=== PATIENT | female | born 1955 | race African-American/Black ===

== ENCOUNTER → 2021-01-27 15:20 | Outpatient (CLI) | payer OTHER, SELFPAY ==
--- NOTE | ~2021-01-27 | DEXA_ITS ---
Bone Density Report Name: America Trimble Age: 65 Sex: Female Ethnicity: Black Date of : 1955 Indication: postmenopausal; screening for osteoporosis; hysterectomy; Referring Provider: TODD CALABRESE Study: Bone densitometry was performed. Exam Date: January 27, 2021 Accession number: [id number] Bone Density: Region BMD T-score Z-score Classification AP Spine (L1-L4) 0.955 -0.8 0.0 Normal Femoral Neck (Left) 0.817 -0.3 0.3 Normal Total Hip (Left) 0.953 0.1 0.4 Normal Femoral Neck (Right) 0.774 -0.7 0.0 Normal Total Hip (Right) 0.968 0.2 0.5 Normal Total Hip Mean 0.961 0.2 0.5 Normal World Health Organization criteria for BMD impression classify patients as: Normal (T-score at or above -1.0), Osteopenia (T-score between -1.0 and -2.5), or Osteoporosis (T-score at or below -2.5). 10-year Fracture Risk: FRAX not reported because: All T-scores for Spine Total, Hip Total, Femoral Neck at or above -1.0 Clinical Information Provided by Patient: Has used the following medications: Vitamin D, multi vitamin Has the following medical conditions: Hysterectomy Patient maximum height was 69 Menopause Age: 38 Does not regularly consume dairy products Drinks caffeinated beverages Onset of menses at age 15 Number of children 1 Impression: The patient has normal bone mass. Discussion: BONE DENSITY IS ABOVE THE MINIMUM DESIRABLE LEVEL AT ALL SKELETAL SITES TESTED. This patient?s bone mineral density is above the minimum desirable level (T-score -1.0 or better) at all sites measured. The patient should follow a healthful lifestyle (good nutrition with adequate calcium and vitamin D, and appropriate weight-bearing exercise). Follow-Up: Consider repeating this study in 5 years or sooner if there is some new clinical indication. Reported by: JOY on 01/27/2021 3:47:00 PM. Reviewed, dictated and finalized at location [facility]OWDER
== END ==
PROVIDERS: PCP Internal Medicine; Visit Provider Obstetrics & Gynecology
DX: Z78.0 Asymptomatic menopausal state (principal)
CPT/HCPCS: 77080

== ENCOUNTER 2022-06-25 01:02 | Day surgery (SDC) | payer OTHER, SELFPAY ==
[2022-06-09 13:51] VITALS: BMI 34.2
[2022-06-25 06:42] VITALS: BP 139/78; PULSE 80; RESP 18; TEMP 36.4; O2SAT 100
[2022-06-25] MEDS: LACTATED RINGERS 1,000 ML 150 ML IV CONT (06:54)
--- NOTE | 2022-06-25 07:31 | PM.HPGS ---
History of Present Illness History of Present Illness Consent: Risks, benefits, and alternatives have been discussed and questions answered. Patient agrees to proceed with procedure. Chief complaint: positive cologuard Narrative: America Trimble is a 66 year old female Presents for screening colonoscopy. Patient's current weight appetite and bowel movements are normal. Patient denies abdominal pain. Patient found to have a positive Cologuard test. This reason was referred for further evaluation by colonoscopy. Patient does have a prior colonoscopy 15 years ago felt to be unremarkable. She denies any blood in her stools her bowel habits are normal. Review of Systems Review of Systems: Review of systems noncontributory. [facility] Past Medical History Medical History Arthritis History of needle biopsy both breast History of uterine fibroid History of vaginal delivery Hyperlipidemia Hypertension Seasonal allergies Surgical History Surgical History History of hysterectomy History of myomectomy S/P foot surgery S/P lumpectomy, left breast Family History Family History Sibling Hypertension Heart disease Cerebrovascular accident Lupus Son Diabetes mellitus Grandparent Stomach cancer Social History Social History Smoking status: Never smoker Alcohol intake: never Substance use: never Substance use type: does not use Living arrangements: alone Spiritual care concerns: No Meds Home Medications and Allergies Home Medications Medication Instructions Recorded Confirmed Type amlodipine 10 mg tablet 10 mg PO DAILY 11/06/20 06/09/22 History atorvastatin 20 mg tablet 20 mg PO DAILY 11/06/20 06/09/22 History cholecalciferol (vitamin D3) 25 25 mcg PO DAILY 11/06/20 06/09/22 History mcg (1,000 unit) capsule fluticasone propionate 50 1 spray intranasal DAILY PRN Nasal 11/06/20 06/09/22 History mcg/actuation nasal Congestion spray,suspension (Flonase Allergy Relief) multivitamin (Multiple Vitamins 1 tablet PO DAILY 11/06/20 06/09/22 History tablet) naproxen 500 mg tablet 500 mg PO DAILY PRN Pain 11/06/20 06/09/22 History oxybutynin chloride 10 mg 10 mg PO DAILY 11/06/20 06/09/22 History tablet,extended release 24 hr vitamin E mixed 100 unit tablet 100 unit PO DAILY 11/06/20 06/09/22 History apple cider vinegar 300 mg tablet 300 mg PO DAILY 11/12/21 06/09/22 History sodium,potassium,mag sulfates 17.5 See Rx Instructions PO .COMPLEX 05/05/22 Rx gram-3.13 gram-1.6 gram oral soln #354 mL (Suprep Bowel Prep Kit) calcium-vitamin D2-iron tablet 1 tablet PO DAILY 06/09/22 06/09/22 History Allergies Allergy/AdvReac Type Severity Reaction Status Date / Time lisinopril Allergy Unknown Asthma Verified 06/25/22 06:41 ragweed pollen Allergy Unknown Asthma Verified 06/25/22 06:41 Vital Signs Vital Signs - 24 hr 06/25/22 06:42 Temperature 97.5 F L Pulse Rate 80 Respiratory Rate 18 Blood Pressure 139/78 Pulse Oximetry 100 Oxygen Delivery Room Air Exam Narrative: Physical exam reveals patient to be alert. Vital signs stable. HEENT exam is unremarkable. Patient is anicteric. Lungs are clear to auscultation and percussion. Heart is without murmur or extra sounds. Abdomen bowel sounds present soft nontender with no organomegaly. Digital external rectal exam is normal. Assessment and Plan Assessment and plan (1) Positive colorectal cancer screening using Cologuard test: Code(s): R19.5 - Other fecal abnormalities Status: Acute Assessment and Plan: Patient was found to have a positive screening Cologuard test. For this reason colonoscopy will be performed.
--- NOTE | 2022-06-25 07:47 | WPDANESEPPF ---
Anes - Initial Pre Proc Eval Procedure: Operation Date: 06/25/22 08:00 Proposed Procedures p Colonoscopy - Alden Burns MD Date/Time: 06/25/22 07:47 Surgeon: Alden Burns MD Pre Op Diagnosis: positive cologuard Patient Data Age: 66 Gender: F Height: 1.73 m Weight: 99.8 kg Last Vital Signs Temp 97.5 F L 06/25/22 06:42 Pulse 80 06/25/22 06:42 Resp 18 06/25/22 06:42 BP 139/78 06/25/22 06:42 Pulse Ox 100 06/25/22 06:42 O2 Del Method Room Air 06/25/22 06:42 Allergies Allergy/AdvReac Type Severity Reaction Status Date / Time lisinopril Allergy Unknown Asthma Verified 06/25/22 06:41 ragweed pollen Allergy Unknown Asthma Verified 06/25/22 06:41 Home Medications Medication Instructions Recorded Confirmed Type amlodipine 10 mg tablet 10 mg PO DAILY 11/06/20 06/09/22 History atorvastatin 20 mg tablet 20 mg PO DAILY 11/06/20 06/09/22 History cholecalciferol (vitamin D3) 25 25 mcg PO DAILY 11/06/20 06/09/22 History mcg (1,000 unit) capsule fluticasone propionate 50 1 spray intranasal DAILY PRN Nasal 11/06/20 06/09/22 History mcg/actuation nasal Congestion spray,suspension (Flonase Allergy Relief) multivitamin (Multiple Vitamins 1 tablet PO DAILY 11/06/20 06/09/22 History tablet) naproxen 500 mg tablet 500 mg PO DAILY PRN Pain 11/06/20 06/09/22 History oxybutynin chloride 10 mg 10 mg PO DAILY 11/06/20 06/09/22 History tablet,extended release 24 hr vitamin E mixed 100 unit tablet 100 unit PO DAILY 11/06/20 06/09/22 History apple cider vinegar 300 mg tablet 300 mg PO DAILY 11/12/21 06/09/22 History sodium,potassium,mag sulfates 17.5 See Rx Instructions PO .COMPLEX 05/05/22 Rx gram-3.13 gram-1.6 gram oral soln #354 mL (Suprep Bowel Prep Kit) calcium-vitamin D2-iron tablet 1 tablet PO DAILY 06/09/22 06/09/22 History Patient hx anesthesia problems: none Family hx anesthesia problems: none Results Review: All pre-operative results and documents have been reviewed as part of the pre-operative evaluation. [facility] Past Medical History Medical History Arthritis History of needle biopsy both breast History of uterine fibroid History of vaginal delivery Hyperlipidemia Hypertension Seasonal allergies Surgical History Surgical History History of hysterectomy History of myomectomy S/P foot surgery S/P lumpectomy, left breast Family History Family History Sibling Hypertension Heart disease Cerebrovascular accident Lupus Son Diabetes mellitus Grandparent Stomach cancer Social History Social History Smoking status: Never smoker Alcohol intake: never Substance use: never Substance use type: does not use Living arrangements: alone Spiritual care concerns: No Anes - Eval Final PreProcedure Day of Procedure 06/25/22 07:47 Patient weight: obese Heart: regular rate and rhythm Lungs: clear to auscultation Airway: Mallampati scale class II Neurological: alert and oriented Last oral intake: >/= 8 hours ASA classification: II Emergent: no Anesthetic plan: proceed Anesthesia type and monitoring: general GIVS and standard monitoring Results Review: All pre-operative results and documents have been reviewed as part of the pre-operative evaluation. Informed Consent: The patient's anesthetic plan and its attendant risks and benefits were discussed with the patient/family/POA. Questions were solicited and answers provided to the satisfaction of the patient/family/POA.
[2022-06-25 08:21] VITALS: BP 121/92; PULSE 68; RESP 18; O2SAT 97
[2022-06-25 08:31] VITALS: BP 108/72; PULSE 70; RESP 18; O2SAT 99
[2022-06-25 08:41] VITALS: BP 132/76; PULSE 66; RESP 18; O2SAT 99
== END 2022-06-25 08:52 | disposition home or self-care (01) ==
PROVIDERS: PCP Internal Medicine; Referring Provider Obstetrics & Gynecology; Visit Provider Internal Medicine Gastroenterology
PROC: 0DJD8ZZ Inspection of Lower Intestinal Tract, Via Natural or Artificial Opening Endoscopic (ICD-10-PCS; CPT 45378; principal; 2022-06-25 08:00)
DX: R19.5 Other fecal abnormalities (principal); K64.8 Other hemorrhoids; I10 Essential (primary) hypertension; E78.5 Hyperlipidemia, unspecified; E66.9 Obesity, unspecified; Z68.33 Body mass index [BMI] 33.0-33.9, adult
CPT/HCPCS: 45378; J2704; J7120

== ENCOUNTER → 2023-04-25 14:50 | Outpatient (CLI) | payer OTHER, SELFPAY ==
--- NOTE | ~2023-04-25 | DEXA_ITS ---
Bone Density Report Name: MIN HEWITT Age: 67 Sex: Female Ethnicity: Black Date of : 1955 Indication: postmenopausal; screening for osteoporosis; hysterectomy; Referring Provider: TODD CALABRESE Study: Bone densitometry was performed. Exam Date: April 25, 2023 Accession number: [id number] Bone Density: Region BMD T-score Z-score Classification AP Spine (L1-L4) 0.933 -1.0 0.0 Normal Femoral Neck (Left) 0.768 -0.7 0.0 Normal Total Hip (Left) 0.925 -0.1 0.3 Normal Femoral Neck (Right) 0.742 -1.0 -0.2 Normal Total Hip (Right) 0.960 0.1 0.5 Normal Total Hip Mean 0.943 0.0 0.4 Normal World Health Organization criteria for BMD impression classify patients as: Normal (T-score at or above -1.0), Osteopenia (T-score between -1.0 and -2.5), or Osteoporosis (T-score at or below -2.5). 10-year Fracture Risk: FRAX not reported because: All T-scores for Spine Total, Hip Total, Femoral Neck at or above -1.0 Previous Exams: Region Exam Age BMD T-score BMD Change BMD Change Date g/cm2 vs Baseline vs Previous AP Spine(L1-L4) 04/25/2023 67 0.933 -1.0 -0.021 -0.021 01/27/2021 65 0.955 -0.8 Total Hip(Left) 04/25/2023 67 0.925 -0.1 -0.028* -0.028* 01/27/2021 65 0.953 0.1 Total Hip(Right) 04/25/2023 67 0.960 0.1 -0.008 -0.008 01/27/2021 65 0.968 0.2 *Denotes significance at 95% confidence level, LSC for AP Spine = 0.022 g/cm2, LSC for Total Hip = 0.027 g/cm2 Clinical Information Provided by Patient: Has used the following medications: Vitamin D, Calcium, multi vitamin, CALTRATE Has the following medical conditions: Hysterectomy Patient maximum height was 69 Menopause Age: 38 Does not regularly consume dairy products Drinks caffeinated beverages Onset of menses at age 15 Number of children 1 Impression: The patient has normal bone mass. The BMD for the Total Hip(Left) decreased, changing by -0.028 since the last DXA exam. Discussion: BONE DENSITY IS ABOVE THE MINIMUM DESIRABLE LEVEL AT ALL SKELETAL SITES TESTED. This patient?s bone mineral density is above the minimum desirable level (T-score -1.0 or better) at all sites measured. The patient should follow a healthful lifestyle (good nutrition with adequate calcium and vitamin D, and appropriate weight-bearing exercise). Follow-Up: Consider repeating this study in 3 to 4 years to reassess this patient's status, or soon
== END ==
PROVIDERS: PCP Internal Medicine; Visit Provider Obstetrics & Gynecology
DX: Z78.0 Asymptomatic menopausal state (principal)
CPT/HCPCS: 77080

== ENCOUNTER 2025-04-26 08:31 | Outpatient (CLI) | payer OTHER, SELFPAY ==
--- NOTE | ~2025-04-26 | DEXA_ITS ---
Bone Density Report Name: MIN HEWITT Age: 69 Sex: Female Ethnicity: Black Date of : 1955 Indication: postmenopausal; screening for osteoporosis; hysterectomy; Referring Provider: GOVIND SORIA Study: Bone densitometry was performed. Exam Date: April 26, 2025 Accession number: [id number] Bone Density: Region BMD T-score Z-score Classification AP Spine(L1-L4) 0.902 -1.3 -0.1 Osteopenia Femoral Neck (Left) 0.731 -1.1 -0.2 Osteopenia Total Hip (Left) 0.889 -0.4 0.1 Normal Femoral Neck (Right) 0.731 -1.1 -0.2 Osteopenia Total Hip (Right) 0.885 -0.5 0.1 Normal Total Hip Mean 0.887 -0.5 0.1 Normal World Health Organization criteria for BMD impression classify patients as: Normal (T-score at or above -1.0), Osteopenia (T-score between -1.0 and -2.5), or Osteoporosis (T-score at or below -2.5). 10-year Fracture Risk(1): Major Osteoporotic Fracture 3.6% Hip Fracture 0.3% Reported Risk Factors: [place] ([place]), Neck BMD=0.731, BMI=34.8 (1) FRAX(R) Version 3.08. Fracture probability calculated for an untreated patient. Fracture probability may be lower if the patient has received treatment. Previous Exams: -- Region Exam Age BMD T-score BMD Change BMD Change Date g/cm2 vs Baseline vs Previous -- AP Spine (L1-L4) 04/26/2025 69 0.902 -1.3 -5.5%* -3.3%* 04/25/2023 67 0.933 -1.0 -2.2% -2.2% 01/27/2021 65 0.955 -0.8 Total Hip(Left) 04/26/2025 69 0.889 -0.4 -6.7%# -3.9%# 04/25/2023 67 0.925 -0.1 -2.9%* -2.9%* 01/27/2021 65 0.953 0.1 Total Hip(Right) 04/26/2025 69 0.885 -0.5 -8.6%# -7.8%# 04/25/2023 67 0.960 0.1 -0.8% -0.8% 01/27/2021 65 0.968 0.2 -- *Denotes significance at 95% confidence level, LSC for AP Spine = 0.022 g/cm2, LSC for Total Hip = 0.027 g/cm2 # Denotes dissimilar scan types or analysis methods Clinical Information Provided by Patient: Has used the following medications: Vitamin D, Calcium Has the following medical conditions: Hysterectomy Patient maximum height was 69 Menopause Age: 38 Onset of menses at age 15 Number of children 1 Impression: The patient has low bone mass, based on the Total Spine T-score. The patient has an estimated ten-year risk of hip fracture of 0.3% and an estimated ten-year risk of major fracture of 3.6%, based on the WHO FRAX algorithm. The BMD for the AP Spine (L1-L4) decreased, changing by -3.3% since the last DXA exam. Discussion: BONE DENSITY IS LOW AT ONE OR MORE SKELETAL SITES. This patient's lowest T-score is low at one or more skeletal sites. It meets the World Health Organization's (WHO) criteria for ?low bone mass? (T-score between -1.0 and -2.5). The patient's 10-year risk of fracture as calculated by FRAX is less than the threshold where pharmacological therapy is recommended by the National Osteoporosis Foundation (NOF). However, all treatment decisions require clinical judgment and consideration of individual patient factors, including patient preferences, comorbidities, previous drug use, risk factors not captured in the FRAX model (e.g., frailty, falls, vitamin D deficiency, increased bone turnover, interval significant decline in bone density) and possible under or overestimation of fracture risk by FRAX. The patient should follow a healthful lifestyle (good nutrition with adequate calcium and vitamin D, and appropriate weight-bearing exercise). Follow-Up: Consider repeating this study in 2 years to reassess this patient's status, or sooner if there is some new clinical indication. Reported by: GILL on 04/26/2025 9:14:00 AM. Reviewed, dictated and finalized at location A.
== END 2025-04-26 08:32 | disposition home or self-care (01) ==
LOC: MICIMG 08:33
PROVIDERS: PCP Internal Medicine; Visit Provider Obstetrics & Gynecology
DX: Z78.0 Asymptomatic menopausal state (principal); M85.88 Other specified disorders of bone density and structure, other site; M85.852 Other specified disorders of bone density and structure, left thigh; M85.851 Other specified disorders of bone density and structure, right thigh
CPT/HCPCS: 77080